=== PATIENT | male | born 1995 | race Caucasian/White ===

== ENCOUNTER 2018-06-23 04:52 | Emergency (ER) | payer MEDICAID ==
[~2018-06-23] VITALS: Ht 177.8 cm; Wt 66.2 kg
[2018-06-23 04:55] VITALS: Ht 177.8 cm; Wt 66.2 kg
[2018-06-23 05:48] LABS: CALCIUM 9.7 mg/dL (8.5-10.1); CHLORIDE SERUM 102 mmol/L (98-107); CREATININE SERUM 1.3 mg/dL (0.7-1.3); GFR1 > 60 mL/min; GLUCOSE SERUM 119 mg/dL (74-106); POTASSIUM SERUM 3.2 mmol/L (3.5-5.1); SODIUM SERUM 140 mmol/L (136-145)
[2018-06-23 05:52] LABS: ALBUMIN 4.9 g/dL (3.4-5.0); ALKALINE PHOSPHATASE 58 U/L (46-116); ALT/SGPT 21 U/L (16-63); AST/SGOT 9 U/L (15-37); BILIRUBIN TOTAL 2.12 mg/dL (0.20-1.00); LIPASE 57 IU/L (73-393)
[2018-06-23 05:53] LABS: TOTAL PROTEIN, SERUM 8.5 g/dL (6.4-8.2)
[2018-06-23 05:59] LABS: BASOPHIL % 0.3 % (0-2); PLATELET COUNT 241 x10^3mcL (130-400); RED CELL DISTRIBUTION WIDTH 12.5 % (11.5-14.5)
[2018-06-23 08:01] LABS: microscopic required? YES; urine erythrocyte NEGATIVE (NEGATIVE)
[2018-06-23 08:13] LABS: AMPHETAMINE QUAL UR NONE DETECTED (See below)
[2018-06-23 10:45] VITALS: BP 120/64
== END 2018-06-23 10:45 | disposition short-term general hospital (02) ==
LOC: ED 04:52
PROVIDERS: Emergency Medicine
DX: J98.2 Interstitial emphysema (principal)
CPT/HCPCS: 82962; 83880; G0480; J1450; J2270; J2543; J3370; J7030; J7050; Q9967